=== PATIENT | female | born 1985 | race American Indian/Alaskan Native ===

== ENCOUNTER 2020-11-23 12:32 | Emergency (ER) | payer SELFPAY ==
[2020-11-23] MEDS ORDERED: SODIUM CHLORIDE 0.9% 1000 ML 1,000 ML IV ONE (14:56)
[2020-11-23] MEDS ORDERED: ACETAMINOPHEN 500 MG TAB PO ONE (14:56)
--- NOTE | 2020-11-23 14:59 | Emergency Department Report ---
ED General Adult HPI - General Chief complaint: Fever Stated complaint: CHILLS,TROUBLE BREATHING,BODY ACHES Time Seen by Provider: 11/23/20 14:51 Source: patient Mode of arrival: Ambulatory Limitations: No Limitations - History of Present Illness Initial comments: 35-year-old female who denies any significant past medical history presents to the ER today with complaints of flulike/Covid-like symptoms. She states that her symptoms started yesterday. She reports generalized body aches, shortness of breath, chills, and and chest pain mainly when she takes a deep breath and when she coughs.. She states that she has had "a slight" productive cough and "slight" wheezing. She denies any rhinorrhea, nasal congestion or sore throat. She denies any fever at home. She reports urinary odor but no dysuria, hematuria or urinary frequency. She denies any nausea, vomiting, diarrhea or abdominal pain. She states that she has not taken a Covid test since she got sick. She also has not taken the COVID-19 vaccine. She denies any known COVID- 19 contacts or any other ill contacts. She denies any recent travel. She does admit to tobacco use. She denies any underlying lung disease, heart disease and she denies any PE DVT risk factors. MD Complaint: Generalized body aches, shortness of breath and chills -: Gradual, days(s) (1) - Related Data Previous Rx's Medication Instructions Recorded Last Taken Type Albuterol Mdi (or & Nicu Only) 2 puff IH QID PRN #8.5 gram 11/23/20 Unknown Rx [ProAir HFA Inhaler] Fluconazole [Diflucan TAB] 200 mg PO QDAY #1 tablet 11/23/20 Unknown Rx Ibuprofen [Motrin] 600 mg PO Q8H PRN #30 tablet 11/23/20 Unknown Rx cephALEXin [Keflex] 500 mg PO Q6HR #40 capsule 11/23/20 Unknown Rx methOCARBAMOL [Robaxin TAB] 500 mg PO Q6H PRN #30 tablet 11/23/20 Unknown Rx Allergies Allergy/AdvReac Type Severity Reaction Status Date / Time No Known Allergies Allergy Verified 11/23/20 12:35 ED Review of Systems ROS: Stated complaint: CHILLS,TROUBLE BREATHING,BODY ACHES Other details as noted in HPI Comment: All other systems reviewed and negative Constitutional: chills Respiratory: cough, shortness of breath, wheezing Gastrointestinal: denies: abdominal pain, nausea, vomiting, diarrhea, constipation, hematemesis, hematochezia Musculoskeletal: arthralgia, myalgia Neurological: headache. denies: abnormal gait, vertigo Psychiatric: denies: anxiety, depression, auditory hallucinations, visual hallucinations ED Past Medical Hx - Past Medical History Previous Medical History?: No Additional medical history: Childbirth by x 3 - Surgical History Additional Surgical History: x 3/ KNEE - Social History Smoking Status: Current Every Day Smoker Substance Use Type: None - Medications Home Medications: Home Medications Medication Instructions Recorded Confirmed Last Taken Type Albuterol Mdi (or & Nicu Only) 2 puff IH QID PRN #8.5 gram 11/23/20 Unknown Rx [ProAir HFA Inhaler] Fluconazole [Diflucan TAB] 200 mg PO QDAY #1 tablet 11/23/20 Unknown Rx Ibuprofen [Motrin] 600 mg PO Q8H PRN #30 tablet 11/23/20 Unknown Rx cephALEXin [Keflex] 500 mg PO Q6HR #40 capsule 11/23/20 Unknown Rx methOCARBAMOL [Robaxin TAB] 500 mg PO Q6H PRN #30 tablet 11/23/20 Unknown Rx ED Physical Exam - General Limitations: No Limitations General appearance: alert, in distress (Patient appears uncomfortable from her body aches) - Head Head exam: Present: atraumatic, normocephalic, normal inspection - Eye Eye exam: Present: normal appearance, PERRL, EOMI Pupils: Present: normal accommodation - ENT ENT exam: Present: normal exam, mucous membranes moist, TM's normal bilaterally - Neck Neck exam: Present: normal inspection, full ROM - Respiratory Respiratory exam: Present: normal lung sounds bilaterally. Absent: respiratory distress, wheezes, rales, rhonchi - Cardiovascular Cardiovascular Exam: Present: regular rate, normal rhythm, normal heart sounds - GI/Abdominal GI/Abdominal exam: Present: soft. Absent: distended, tenderness, guarding, rebound - Extremities Exam Extremities exam: Present: normal inspection, full ROM. Absent: tenderness, pedal edema, calf tenderness - Neurological Exam Neurological exam: Present: alert, oriented X3, CN II-XII intact, normal gait - Psychiatric Psychiatric exam: Present: normal affect, normal mood - Skin Skin exam: Present: intact ED Course Vital Signs 11/23/20 11/23/20 11/23/20 12:39 16:56 17:47 Temperature 99.2 F 99.2 F Pulse Rate 114 H 72 Respiratory 20 18 Rate Blood Pressure 107/77 Blood Pressure 116/76 [Left] O2 Sat by Pulse 98 95 98 Oximetry ED Medical Decision Making - Lab Data Result diagrams: 11/23/20 15:34 11/23/20 15:34 - Radiology Data Radiology results: report reviewed Patient: GASTON OLSON MR#: [id number] : 1985 Acct:[id number] Age/Sex: 35 / F ADM Date: 11/23/20 Loc: ED Attending Dr: Ordering Physician: DEANNA ALCANTARA Date of Service: 11/23/20 Procedure(s): XR chest routine 2V Accession Number(s): [id number] cc: DEANNA ALCANTARA Fluoro Time In Minutes: CHEST 2 VIEWS INDICATION / CLINICAL INFORMATION: Shortness of breath. COMPARISON: None available. FINDINGS: SUPPORT DEVICES: None. HEART / MEDIASTINUM: No significant abnormality. LUNGS / PLEURA: No significant pulmonary or pleural abnormality. No pneumothorax. ADDITIONAL FINDINGS: No significant additional findings. IMPRESSION: 1. No acute findings. Signer Name: Christopher Kimball MD Signed: 11/23/2020 3:30 PM Workstation Name: [id number] Transcribed By: ALLISON Dictated By: Christopher Kimball MD Electronically Authenticated By: Christopher Kimball MD Signed Date/Time: 11/23/201529 DD/ 29 TD/TT: - Medical Decision Making 35-year-old female who denies any significant past medical history presents to the ER today with complaints of flulike/Covid-like symptoms. She states that her symptoms started yesterday. She reports generalized body aches, shortness of breath, chills, and and chest pain mainly when she takes a deep breath and w hen she coughs.. She states that she has had "a slight" productive cough and "slight" wheezing. She denies any rhinorrhea, nasal congestion or sore throat. She denies any fever at home. She reports urinary odor but no dysuria, hematuria or urinary frequency. She denies any nausea, vomiting, diarrhea or abdominal pain. She states that she has not taken a Covid test since she got sick. She also has not taken the COVID-19 vaccine. She denies any known COVID- 19 contacts or any other ill contacts. She denies any recent travel. She does admit to tobacco use. She denies any underlying lung disease, heart disease and she denies any PE DVT risk factors. 1730: All labs reviewed -CBC shows thrombocytopenia with a platelet count of 125, otherwise is unremarkable. CMP shows no acute abnormalities. Urinalysis is concerning for UTI, and urine culture is pending. hCG is negative. Chest x- ray shows nothing acute. Repeat vital signs shows improvement of her heart rate after fluids. She has remained afebrile and her remaining vitals are stable. She reports that she still feels achy all over, but not any worse than when she first came in. She is not currently in any acute respiratory distress. She not toxic or severely ill-appearing. Discussed all lab and x-ray results with jayson aguilar.Discussed case and lab results with Dr. Star Grace. Patient will follow up on an outpatient basis with her primary care doctor and or hematology about her thrombocytopenia. Patient will be started on antibiotics for her UTI, informed her that the UTI could be contributing to her symptoms but I also did recommend that she get an outpatient COVID-19 test. Critical care attestation.: If time is entered above; I have spent that time in minutes in the direct care of this critically ill patient, excluding procedure time. ED Disposition Clinical Impression: UTI (urinary tract infection), Thrombocytopenia, Dyspnea, Viral URI Disposition: DC-01 TO HOME OR SELFCARE Is pt being admited?: No Does the pt Need Aspirin: No Condition: Stable Instructions: Urinary Tract Infection, Adult, Keep-zf-Uxah, Shortness of Breath, Adult, Viral Illness, Adult Additional Instructions: I recommend that you take the antibiotics as prescribed. Drink lots of water. Take the ibuprofen and the muscle relaxer as needed for pain. Use albuterol inhaler as prescribed to help with any shortness of breath or wheezing. You can take Mucinex and/or Robitussin from [id number] to help with any coughing. I do also recommend that she get an outpatient COVID-19 test and quarantine until you get the test results. Follow quarantine protocols per your job if your COVID-19 test is positive. I recommend that you follow-up with your local primary care doctor and/or medical malpractice paralegal for continued monitoring of your platelet count. Return to the ER if your symptoms changes or worsens in any w ay. Prescriptions: Fluconazole [Diflucan TAB] 200 mg PO QDAY #1 tablet cephALEXin [Keflex] 500 mg PO Q6HR #40 capsule Ibuprofen [Motrin] 600 mg PO Q8H PRN #30 tablet PRN Reason: Pain Albuterol Mdi (or & Nicu Only) [ProAir HFA Inhaler] 2 puff IH QID PRN #8.5 gram PRN Reason: Shortness Of Breath methOCARBAMOL [Robaxin TAB] 500 mg PO Q6H PRN #30 tablet PRN Reason: muscle pain Referrals: [facility] [Provider Group] - 3-5 Days [facility] [Provider Group] - 3-5 Days [facility] [Provider Group] - 3-5 Days Forms: Work/School Release Form(ED) Time of Disposition: 17:21
--- NOTE | 2020-11-23 15:54 | XRay Report ---
CHEST 2 VIEWS INDICATION / CLINICAL INFORMATION: Shortness of breath. COMPARISON: None available. FINDINGS: SUPPORT DEVICES: None. HEART / MEDIASTINUM: No significant abnormality. LUNGS / PLEURA: No significant pulmonary or pleural abnormality. No pneumothorax. ADDITIONAL FINDINGS: No significant additional findings. IMPRESSION: 1. No acute findings. Signer Name: Christopher Kimball MD Signed: 11/23/2020 3:30 PM Workstation Name: [id number]
[2020-11-23 16:09] LABS: Hematocrit 38.1 % (30.3-42.9); Hemoglobin 12.8 gm/dl (10.1-14.3); Mean Corpuscular HGB Conc 34 % (30-34); Mean Corpuscular Volume 85 fl (79-97); Platelet Count 125 K/mm3 (140-440); Red Cell Distribution Width 14.4 % (13.2-15.2)
[2020-11-23 16:24] LABS: Alanine Aminotransferase 20 units/L (7-56); Albumin 4.3 g/dL (3.9-5); BUN/Creatinine Ratio 12; Blood Urea Nitrogen 11 mg/dL (7-17); Calcium 8.8 mg/dL (8.4-10.2); Hemolysis Index 7
[2020-11-23 16:46] LABS: Bilirubin,Urine NEG (Negative); Blood,Urine LG (Negative); Color,Urine Red (Yellow); Mucus,Urine 3+ /HPF; Urobilinogen,Urine < 2.0 mg/dL (<2.0)
[2020-11-23 16:51] LABS: RBC,Urine > 182.0 /HPF (0.0-6.0); WBC,Urine > 182.0 /HPF (0.0-6.0)
[2020-11-23 16:57] VITALS: BP 116/76
[2020-11-23] MEDS ORDERED: KETOROLAC 30 MG/1 ML INJ IV ONE (17:16)
[2020-11-23] MEDS ORDERED: dexAMETHasone 4 MG/ML VIAL IV ONE (17:16)
[2020-11-23] MEDS ORDERED: FLUCONAZOLE 100 MG TAB PO ONE (17:20)
[2020-11-23] MEDS ORDERED: cephALEXin 500 MG CAP PO ONE (17:29)
[2020-11-23] MEDS ORDERED: FLUCONAZOLE 200 MG TAB PO ONE (18:00)
[2020-11-23 18:23] LABS: Total Cells Counted 100
[2020-11-23 18:24] LABS: Giant Platelets Rare; RBC Morphology Normal
== END 2020-11-23 17:49 | disposition home or self-care (01) ==
LOC: ED 12:32
DX: D69.6 Thrombocytopenia, unspecified (principal); N39.0 Urinary tract infection, site not specified; J06.9 Acute upper respiratory infection, unspecified; R06.00 Dyspnea, unspecified; F17.200 Nicotine dependence, unspecified, uncomplicated; Z79.899 Other long term (current) drug therapy; Z98.890 Other specified postprocedural states
CPT/HCPCS: 36415; 71046; 80053; 81001; 83735; 85007; 85025; 96361; 96374; 96375; 99284; J1100; J1885; J7030